=== PATIENT | female | born 1940 | race Caucasian/White ===

== ENCOUNTER 2023-06-11 15:35 | Observation (INO) | payer MEDICARE, SELFPAY ==
--- NOTE | 2023-06-11 15:51 | ED.HA ---
HPI - Headache General Chief Complaint: General Medical Stated Complaint: severe headache , dizziness, blurred vision Time Seen by Provider: 06/11/23 16:28 Source: patient and family () Mode of arrival: ambulatory History of Present Illness HPI Narrative: 83-year-old female with past medical history of high blood pressure, previous smoker, is typically seen through the [facility] system presents with 3-4 days of head pressure and feeling nauseous, dizzy, and this started after her recent influenza vaccine and has not been associated with any fever, chills, gait instability but she has had acute on chronic worsening of her nausea and vomiting and is currently on Ozempic for weight loss and 2 weeks ago had an increase in dosage. She otherwise denies any diarrhea or abdominal pain and denies any dysuria. I reviewed the triage note which reports blurry vision and the patient further clarifies this stating that this only occurs on reading up close in states that her last eye exam was over a year ago. Related Data Home Medications Medication Instructions Recorded Confirmed alprazolam 0.5 mg tablet 0.5 mg PO DAILY PRN restless legs 06/11/23 06/11/23 amlodipine 10 mg tablet 10 mg PO DAILY 06/11/23 06/11/23 duloxetine 20 mg capsule,delayed 20 mg PO DAILY 06/11/23 06/11/23 release ezetimibe 10 mg tablet 10 mg PO DAILY 06/11/23 06/11/23 fluoxetine 20 mg capsule 20 mg PO DAILY 06/11/23 06/11/23 furosemide 40 mg tablet 40 mg PO DAILY 06/11/23 06/11/23 glycopyrrolate 1 mg tablet 3 mg PO BID 06/11/23 06/11/23 losartan 50 mg tablet 50 mg PO DAILY 06/11/23 06/11/23 pregabalin 50 mg capsule 50 mg PO BID 06/11/23 06/11/23 ropinirole 0.5 mg tablet 0.5 mg PO DAILY@1700 06/11/23 06/11/23 ropinirole 1 mg tablet 1 mg PO DAILY@2300 06/11/23 06/11/23 semaglutide 0.25 mg or 0.5 mg (2 0.5 mg subcut QWEEK 06/11/23 06/11/23 mg/3 mL) subcutaneous pen injector (Ozempic) trazodone 50 mg tablet 50 mg PO BEDTIME 06/11/23 06/11/23 Allergies Allergy/AdvReac Type Severity Reaction Status Date / Time No Known Allergies Allergy Verified 06/11/23 15:59 Review of Systems Review of Systems: Pertinent positives and negatives as stated in HPI PMFSH Past Medical History Source: nursing notes reviewed Social History Social History Advance Directives: No Advance Directives Information Provided: Yes Physical Exam Vital Signs: Vital Signs: Last Vital Signs Temp 98.6 F 06/11/23 15:52 Pulse 60 06/11/23 18:42 Resp 14 06/11/23 15:52 BP 133/46 L 06/11/23 18:42 Pulse Ox 95 06/11/23 18:42 O2 Del Method Room Air 06/11/23 18:42 BMI result Body Mass Index 30.1 VITAL SIGNS: Reviewed. GENERAL: Well developed, well nourished, in no acute distress. HEAD: Normocephalic/atraumatic EYES: PERRLA, EOMI EARS: Ext canals without abnormality NOSE: Nares patent bilateral OROPHARYNX: no oral lesions noted, posterior pharynx clear NECK: Supple, no adenopathy LUNGS: Normal breath sounds. No adventitious sounds or accessory muscle use. SpO2<94> CARDIOVASCULAR: Regular rate and rhythm without noted murmurs ABDOMEN: Soft, non-tender, non-distended with bowel sounds. MUSCULOSKELETAL: No tenderness, deformities, or effusions noted on gross inspection. EXTREMITIES: No cyanosis, clubbing or edema. SKIN: Inspection of the skin reveals no rashes NEUROLOGIC: Alert and oriented x 4. Strength and sensation to light touch were grossly intact x 4, no facial asymmetry, no pronator drift, cranial nerves 2-12 are grossly intact.. Course Course Course Narrative: This is an RME: Additional HPI, ROS, PE not included below will be deferred to primary provider. Patient is an 83 year old female presenting for evaluation of Head feels weird out of place but denies headache, feeling off balance, blurred vision x 2 days, fatigue, symptom onset 1-2 days ago. Symptoms progressively worsening prompting this visit. Per her she has been confused and forgetful the past 2 days, at times when she is speaking she doesn't make sense . NIH score 0 at this time. Reports hx of TIA approx 10 years ago. Also endorses a cough with green phlegm. Plan: Labs, EKG, viral testing, CT head Medications Administered Discontinued Medications Generic Name Dose Route Start Last Admin Trade Name Ramos PRN Reason Stop Dose Admin Acetaminophen 975 mg 06/11/23 17:30 06/11/23 18:09 Acetaminophen 325 Mg Tablet PO 06/11/23 17:31 975 mg ONCE ONE Administration Aspirin 162 mg 06/11/23 19:02 06/11/23 19:30 Aspirin 81 Mg Tab.Chew PO 06/11/23 19:03 162 mg ONCE ONE Administration Ibuprofen 400 mg 06/11/23 17:30 06/11/23 18:08 Ibuprofen 400 Mg Tablet PO 06/11/23 17:31 400 mg ONCE ONE Administration Ondansetron HCl 4 mg 06/11/23 17:30 06/11/23 18:08 Ondansetron Odt 4 Mg Tab.Rapdis TRANSLINGU 06/11/23 17:31 4 mg ONCE ONE Administration Medical Decision Making Medical Decision Making MDM Narrative: 1708: 83-year-old female with history and clinical presentation, DDX: Infection, anemia, electrolyte abnormality, medication side effect, exacerbation of chronic condition, low clinical suspicion for intracranial abnormality due to no focal deficits noted, poor oral intake as an etiology for patient's symptoms, arrhythmia. 1730: Orthostatics are negative I reviewed all investigations and hematologic indices are negative for leukocytosis/left shift, no anemia or thrombocytopenia. Coagulation studies are within normal limits. Chemistry indices are grossly within normal limits without evidence of DESEAN/electrolyte or liver enzyme derangements. COVID-19 testing is negative. Chest x-ray without infiltrates and otherwise patient is afebrile and has no leukocytosis and my interpretation is in agreement with radiology's impression. CT scan is being read as age indeterminate lacunar infarcts or prominent perivascular spaces in bilateral basal ganglia. And recommends MRI of the brain. MRI has been ordered. 1901: I was informed that MRI is not available today, I have discussed all results and findings with the patient who understands that she will be admitted for further evaluation via MRI in the morning, there are no gross motor or sensory deficits, patient does continue to complain of feelings of dizziness on standing. 1900: I discussed the inpatient hospitalist who recommends outpatient MRI at this time. Consult has been placed to the hospitalist service, I have reached out to Neurology though patient's symptoms are not acute in nature. 1999: I discussed the case with Dr. Hodges who agrees with MRI tomorrow, although he does feel that the lacunar findings on CT scan are not associated with patient's symptoms and recommends a thorough visual field exam. 2003: I communicated the recommendations with Leila Brandon, hospitalist. Differential Diagnosis Differential Diagnoses: The differential diagnosis associated with the presentation includes Please see the discussion above Admission/Observation Consideration of admission/observation: Escalation of care including admission/observation considered Please see the discussion above Consult Healthcare Provider Management of the patient was discussed with: Hospitalist Please see the discussion above Lab Data MDM Lab Attestation statement: I reviewed the patient's lab results. Please see the discussion above 06/11/23 16:55 06/11/23 16:55 Labs: Lab Results 06/11/23 06/11/23 Range/Units 16:03 16:55 WBC 8.8 (4.8-10.8) X10*3/uL RBC 4.33 (4.20-5.50) X10*6/uL Hgb 12.6 (12.0-16.0) g/dl Hct 38.9 (37.0-47.0) % MCV 89.8 (80.0-98.0) fL MCH 29.1 (27.0-33.0) pg MCHC 32.4 (31.0-35.0) g/dl RDW 13.0 (11.0-16.0) % Plt Count 236 (160-400) X10*3/uL MPV 10.3 (9.4-12.3) fL Immature Gran % (Auto) 0.2 (0.0-0.4) % Neut % (Auto) 55.2 (45-73) % Lymph % (Auto) 28.5 (20-40) % Taney % (Auto) 8.6 (2-11) % Eos % (Auto) 6.7 H (0-4) % Baso % (Auto) 0.8 (0-2) % Lymph # (Auto) 2.5 (1.2-4.9) X10*3/uL Taney # (Auto) 0.8 (0.1-1.2) X10*3/uL Eos # (Auto) 0.6 H (0.0-0.4) X10*3/uL Baso # (Auto) 0.1 (0.0-0.2) X10*3/uL Abs Immat Gran (auto) 0.02 (0.00-0.03) X10*3/uL Absolute Neuts (auto) 4.9 (2.0-8.3) x10*3/uL Absolute Nucleated RBC 0.000 (0.0-0.012) X10*3/uL Nucleated RBC % (auto) 0.0 (0.0-0.2) /100WBC PT 12.8 (11.1-13.3) SEC INR 1.1 (0.9-1.1) Sodium 142 (135-145) mmol/L Potassium 3.5 (3.3-5.1) mmol/L Chloride 103 (96-108) mmol/L Carbon Dioxide 27 (22-29) mmol/L Anion Gap 16 (12-20) BUN 23 H (9-16) mg/dL Creatinine 0.78 (0.5-1.4) mg/dL Estim Creat Clear Calc 49.3 Estimated GFR > 60 Random Glucose 103 (60-115) mg/dL Calcium 9.7 (8.4-10.2) mg/dL Total Bilirubin 0.5 (0.0-1.0) mg/dL AST 14 (5-31) U/L ALT 17 (0-31) U/L Alkaline Phosphatase 64 (39-117) U/L Total Protein 6.8 (6.5-8.0) g/dL Albumin 4.1 (3.5-5.0) g/dL COVID-19 (FABBY) Negative (Negative) COVID-19 Clin Com See Note Independent Interpretation I performed an independent interpretation of an: EKG Interpretation: Normal sinus rhythm, HR -62, no STEMI, OH/QRS/QTC are within normal limits. Radiology Impression Discussion of test interpretation with radiology: I have reviewed the radiologist's reading. Radiologist Impression: Please see the discussion above Chronic Conditions Patient?s care impacted by: Hypertension Critical Care Time Critical Care Time Critical Care Time: Yes Total Critical Care Time: 45 Attestation: I personally attest to this time spent taking care of the patient. Discharge Plan Discharge Clinical Impression: Dizziness, Blurred vision, bilateral Patient Disposition: Admitted As Inpatient
[2023-06-11 15:52] VITALS: BP 116/58; PULSE 65; RESP 14; TEMP 37; O2SAT 94; BMI 30.1
[2023-06-11 17:24] VITALS: BP 133/49; PULSE 61
[2023-06-11 17:25] VITALS: BP 130/53; BP 140/46; PULSE 64; PULSE 65
[2023-06-11 17:50] LABS: Alanine Aminotransferase 17 U/L (0-31); Albumin Level 4.1 g/dL (3.5-5.0); Alkaline Phosphatase 64 U/L (39-117); Anion Gap 16 (12-20); Aspartate Amino Transferase 14 U/L (5-31); Bilirubin Total 0.5 mg/dL (0.0-1.0); Blood Urea Nitrogen 23 mg/dL (9-16); Calcium 9.7 mg/dL (8.4-10.2); Carbon Dioxide 27 mmol/L (22-29); Chloride 103 mmol/L (96-108); Creatinine Clr Calc Pharmacy 49.3; Estimated Glomerular Filt Rate > 60; Glucose Random 103 mg/dL (60-115); Potassium 3.5 mmol/L (3.3-5.1); Sodium 142 mmol/L (135-145); Total Protein 6.8 g/dL (6.5-8.0)
--- NOTE | 2023-06-11 18:26 | PC.NURSE ---
MRI screening form obtained. per radiology, MRI is no longer in the building and patient will have to wait until tomorrow. provider aware.
[2023-06-11 18:42] VITALS: BP 133/46; PULSE 60; O2SAT 95
--- NOTE | 2023-06-11 19:23 | PHA.MEDREC ---
Pharmacy Consult ? Medication Reconciliation Pharmacy has completed the medication reconciliation. Spoke to patient and verified medication list. Patient is not sure which strength of duloxetine she's on, she just knows she takes it once a day. She had both 20mg and 60mg filled at about the same time. Reporting the 20mg which was filled last.
--- NOTE | 2023-06-11 19:40 | PM.EVENT ---
Event Note Date of Service: 06/11/23 Event Note: 83 year old female with history of htn, remote history TIA 10 years ago, hld, fibromyagia, insomnia, who is a former smoker (quit 30 years ago) presented to the ED earlier today for evaluation of vague symptoms. She reports a funny sensation in her eyes that started about 2 days about. She describes this like a heaviness with associated photophobia. She denies blurred vision, photophobia, ocular pain, pain with eye movements, floaters, or loss of vision. She also reports a fogginess and memory impairment ongoing for over a year as well as a feeling of off balance occassionally ongoing for about the same. She reports slurred speech also going on for over a year and only occurring when she is tired. Has had numbness in the left hand x 1 week and is being treated for carpal tunnel syndrome. She developed a frontal headache earlier today. She has no acute change in these symptoms. No focal weakness or other focal paresthesias. No slurred speech. Head CT shows age-indeterminate lacunar infarcts and/or prominent perivascular spaces in the bilateral basal ganglia, correlation with MRI recommended as deemed clinically appropriate. No evidence of acute intracranial hemorrhage or edematous territorial infarct. Chest x-ray negative for any acute cardiopulmonary abnormality. Vital signs are stable, no hypertension. Hematology studies unremarkable. Renal function and electrolyte levels normal. Negative Time Spent With Patient Time: Total time managing care of this patient today ____ minutes.
--- NOTE | 2023-06-11 20:08 | PM.IMHP ---
History of Present Illness Date of Service: 06/11/23 Attending physician on admission: [facility] Chief Complaint: heavy sensation eyes 83 year old female with history of htn, remote history TIA 10 years ago, hld, fibromyagia, insomnia, who is a former smoker (quit 30 years ago) presented to the ED earlier today for evaluation of vague symptoms. She reports a funny sensation in her eyes that started about 2 days about. She describes this like a heaviness with associated photophobia. She denies blurred vision, photophobia, ocular pain, pain with eye movements, floaters, or loss of vision. She also reports a fogginess and memory impairment ongoing for over a year as well as a feeling of off balance occassionally ongoing for about the same. She reports slurred speech also going on for over a year and only occurring when she is tired. Has had numbness in the left hand x 1 week and is being treated for carpal tunnel syndrome. She developed a frontal headache earlier today. She has no acute change in these symptoms. No focal weakness or other focal paresthesias. No slurred speech. Head CT shows age-indeterminate lacunar infarcts and/or prominent perivascular spaces in the bilateral basal ganglia, correlation with MRI recommended as deemed clinically appropriate. No evidence of acute intracranial hemorrhage or edematous territorial infarct. Chest x-ray negative for any acute cardiopulmonary abnormality. Vital signs are stable, no hypertension. Hematology studies unremarkable. Renal function and electrolyte levels normal. Negative COVID-19. In the ED, aspirin 162mg given along with ibuprofen, tylenol, and ondansetron. ED provider discussed case with neurology recommending MRI tomorrow. [facility] Medical History (Updated 06/11/23 @ 20:21 by CHELLY Garcia) Restless leg syndrome Insomnia Fibromyalgia History of TIA (transient ischemic attack) Hyperlipidemia Hypertension Social History Advance Directives: No Advance Directives Information Provided: Yes Meds Allergies Allergy/AdvReac Type Severity Reaction Status Date / Time No Known Allergies Allergy Verified 06/11/23 15:59 Home Medications Medication Instructions Recorded Confirmed Last Taken Type alprazolam 0.5 mg tablet 0.5 mg PO DAILY PRN restless legs 06/11/23 06/11/23 06/11/23 History amlodipine 10 mg tablet 10 mg PO DAILY 06/11/23 06/11/23 Unknown History duloxetine 20 mg capsule,delayed 20 mg PO DAILY 06/11/23 06/11/23 Unknown History release ezetimibe 10 mg tablet 10 mg PO DAILY 06/11/23 06/11/23 Unknown History fluoxetine 20 mg capsule 20 mg PO DAILY 06/11/23 06/11/23 06/11/23 History furosemide 40 mg tablet 40 mg PO DAILY 06/11/23 06/11/23 06/11/23 History glycopyrrolate 1 mg tablet 3 mg PO BID 06/11/23 06/11/23 06/11/23 History losartan 50 mg tablet 50 mg PO DAILY 06/11/23 06/11/23 06/11/23 History pregabalin 50 mg capsule 50 mg PO BID 06/11/23 06/11/23 06/11/23 History ropinirole 0.5 mg tablet 0.5 mg PO DAILY@1700 06/11/23 06/11/23 06/10/23 History ropinirole 1 mg tablet 1 mg PO DAILY@2300 06/11/23 06/11/23 06/10/23 History semaglutide 0.25 mg or 0.5 mg (2 0.5 mg subcut QWEEK 06/11/23 06/11/23 06/11/23 History mg/3 mL) subcutaneous pen injector (Ozempic) trazodone 50 mg tablet 50 mg PO BEDTIME 06/11/23 06/11/23 06/11/23 History Physical Exam Vital Signs and Narrative: Vital Signs: Last Vital Signs Temp 98.6 F 06/11/23 15:52 Pulse 60 06/11/23 18:42 Resp 14 06/11/23 15:52 BP 133/46 L 06/11/23 18:42 Pulse Ox 95 06/11/23 18:42 O2 Del Method Room Air 06/11/23 18:42 BMI result Body Mass Index 30.1 Results Labs 06/11/23 16:55 06/11/23 16:55 Labs: Laboratory Results - last 24 hr 06/11/23 06/11/23 16:03 16:55 MCV 89.8 MCH 29.1 MCHC 32.4 RDW 13.0 Plt Count 236 MPV 10.3 Immature Gran % (Auto) 0.2 Neut % (Auto) 55.2 Lymph % (Auto) 28.5 Franklin % (Auto) 8.6 Eos % (Auto) 6.7 H Baso % (Auto) 0.8 Lymph # (Auto) 2.5 [place] # (Auto) 0.8 Eos # (Auto) 0.6 H Baso # (Auto) 0.1 Abs Immat Gran (auto) 0.02 Absolute Neuts (auto) 4.9 Absolute Nucleated RBC 0.000 Nucleated RBC % (auto) 0.0 PT 12.8 INR 1.1 Anion Gap 16 Estim Creat Clear Calc 49.3 Estimated GFR > 60 Random Glucose 103 Calcium 9.7 Total Bilirubin 0.5 AST 14 ALT 17 Alkaline Phosphatase 64 Total Protein 6.8 Albumin 4.1 COVID-19 (FABBY) Negative COVID-19 Clin Com See Note Imaging Radiologist's Impressions: Impressions Chest X-Ray 06/11/23 16:10 IMPRESSION: Mild right base atelectasis. Head CT 06/11/23 17:14 IMPRESSION: 1. No evidence of acute intracranial hemorrhage or edematous territorial infarction. 2. Age indeterminate lacunar infarcts and/or prominent perivascular spaces in the bilateral basal ganglia. Recommend correlation with an MR of the brain as clinically deemed appropriate. Assessment and Plan (1) Headache: Status: Acute (2) Vision changes: Status: Acute Plan 83 year old female with history of htn, remote history TIA 10 years ago, hld, fibromyagia, insomnia, who is a former smoker (quit 30 years ago) to be observed for vision changes and headache #Acute/subacute vision changes -pt reporting heaviness in eyes bilaterally with photophobia ongoing several days -Head CT negative for acute intracranial abnormality but does show age indeterminate lacunar infarcts -?related to migraine headache (given associated headache) vs CVA -Per neurology, MRI brain tomorrow -Given asa in ED, continue asa 81mg daily -Check lipid panel, initiate atorvastatin 40mg -neuro consult -observe on tele #HTN -bp reasonably controlled -continue lasix, losartan, amlodipine #HLD -as above #fibromyalgia/RLS -continue home meds #Mood disorder, unspecified -continue home meds DVT prophylaxis- lovenox Full code Time Spent With Patient Time: Total time managing care of this patient today ____ minutes. Quality Stroke Does the patient have a stroke diagnosis?: No VTE Prior VTE?: No VTE Risk Level:: Medical - moderate - high VTE Device Contraindication: Treatment Not Indicated VTE Drug Contraindication: N/A - Med Ordered
[2023-06-11 20:38] LABS: Cholesterol 172 mg/dL (<200); HDL Cholesterol 33 mg/dL (>40); LDL Cholesterol Calculated 89 mg/dL (<100); Triglycerides 253 mg/dL (<150)
[2023-06-11 21:04] VITALS: BP 146/44; PULSE 60; RESP 17; TEMP 36.7; O2SAT 98
[2023-06-12] VITALS (7 sets, daily range): BP systolic 110–155; BP diastolic 55–69; PULSE 52–68; RESP 14–20; TEMP 36–37; O2SAT 90–97
[2023-06-12 07:15] LABS: Anion Gap 12 (12-20); Blood Urea Nitrogen 23 mg/dL (9-16); Calcium 9.3 mg/dL (8.4-10.2); Carbon Dioxide 29 mmol/L (22-29); Chloride 104 mmol/L (96-108); Creatinine Clr Calc Pharmacy 48.7; Estimated Glomerular Filt Rate > 60; Glucose Random 118 mg/dL (60-115); Potassium 3.2 mmol/L (3.3-5.1); Sodium 142 mmol/L (135-145)
--- NOTE | 2023-06-12 09:33 | MHC.CM.PN ---
CM attempted X2 to meet with Patient who was sleeping soundly. CM spoke with Patient's /HCP/Real @ [phone] and IMM was addressed. Patient lives in a house with her and she requires no services nor DME [facility]. PCP is a Dr. TORRES (incorrect spelling) at [address] [place] [address] in [facility]. Home/self care is the goal and CM has initiated and will follow for dc planning.
--- NOTE | 2023-06-12 15:39 | HO.PM.IMPN ---
Subjective Subjective Date of Service: 06/12/23 Interval History: no further symptoms since admission. States that multiple symptoms associated with eyes. States the eyes start 1st and then she gets some garbled speech and then some weakness in her left hand all of which resolved over time. Review of Systems denies chest pain Denies shortness of breath Denies nausea vomiting diarrhea Denies fever chills Physical Exam Vital Signs: Vital Signs: Last Vital Signs Temp 98.2 F 06/12/23 15:03 Pulse 62 06/12/23 15:03 Resp 20 06/12/23 15:03 BP 117/56 L 06/12/23 15:03 Pulse Ox 93 06/12/23 15:03 O2 Del Method Room Air 06/12/23 15:03 BMI result Body Mass Index 30.1 Const: Other: No acute distress Resp: Other: clear to auscultation bilaterally no rales rhonchi wheezes Cardio: Other: no S4; positive S1-S2; no S3 murmurs rubs or gallops Neuro: Other: cranial nerves 2-12 grossly intact as tested. Motor is 5/5 all extremities. Sensation is intact cognition is grossly Extrem: Other: no edema bilaterally Objective Data Active Medications Acetaminophen (Acetaminophen 325 Mg Tablet) 650 mg PO Q6H PRN PRN Reason: Pain, Mild (Pain Scale 1-3) Alprazolam (Alprazolam 0.5 Mg Tablet) 0.5 mg PO DAILY PRN PRN Reason: restless legs Last Admin: 06/11/23 21:24 Dose: 0.5 mg Documented By: GWEN Amlodipine Besylate (Amlodipine Besylate 10 Mg Tablet) 10 mg PO DAILY [facility]; Protocol Last Admin: 06/12/23 09:20 Dose: 10 mg Documented By: TALAT Aspirin (Aspirin Enteric Coated 81 Mg Tablet.) 81 mg PO DAILY [facility] Last Admin: 06/12/23 09:20 Dose: 81 mg Documented By: TALAT Atorvastatin Calcium (Atorvastatin Calcium 40 Mg Tablet) 40 mg PO DAILY [facility] Last Admin: 06/12/23 09:20 Dose: 40 mg Documented By: TALAT Docusate Sodium (Docusate Sodium 100 Mg Capsule) 100 mg PO DAILY PRN PRN Reason: Constipation Duloxetine HCl (Duloxetine Hcl 20 Mg Capsule.) 20 mg PO DAILY [facility] Last Admin: 06/12/23 09:20 Dose: 20 mg Documented By: TALAT Ezetimibe (Ezetimibe 10 Mg Tablet) 10 mg PO DAILY [facility] Last Admin: 06/12/23 09:20 Dose: 10 mg Documented By: TALAT Enoxaparin Sodium (Enoxaparin Sodium 40 Mg/0.4 Ml Syringe) 40 mg SUBCUT Q24H [facility] Last Admin: 06/11/23 21:25 Dose: 40 mg Documented By: GWEN Fluoxetine HCl (Fluoxetine Hcl 20 Mg Capsule) 20 mg PO DAILY [facility] Last Admin: 06/12/23 09:20 Dose: 20 mg Documented By: TALAT Furosemide (Furosemide 40 Mg Tablet) 40 mg PO DAILY [facility]; Protocol Last Admin: 06/12/23 09:20 Dose: 40 mg Documented By: TALAT Glycopyrrolate (Glycopyrrolate 1 Mg Tablet) 3 mg PO BID [facility] Last Admin: 06/12/23 09:20 Dose: 3 mg Documented By: TALAT Guaifenesin/Codeine Phosphate (Guaifen/Codeine Sf 200/20/10ml 10 Ml Liquid) 10 ml PO Q4H PRN PRN Reason: cough Last Admin: 06/12/23 15:26 Dose: 10 ml Documented By: TALAT Losartan Potassium (Losartan Potassium 50 Mg Tablet) 50 mg PO DAILY [facility]; Protocol Last Admin: 06/12/23 09:20 Dose: 50 mg Documented By: TALAT Ondansetron HCl (Ondansetron Hcl 4 Mg/2 Ml Vial) 4 mg IVPUSH Q8H PRN PRN Reason: Nausea and Vomiting Potassium Chloride (Potassium Chloride Packet 20 Meq Packet) 40 meq PO BID [facility] Stop: 06/12/23 21:01 Last Admin: 06/12/23 09:42 Dose: 40 meq Documented By: TALAT Pregabalin (Pregabalin 50 Mg Capsule) 50 mg PO BID [facility] Last Admin: 06/12/23 09:20 Dose: 50 mg Documented By: TALAT Ropinirole HCl (Ropinirole Hcl 0.5 Mg Tablet) 0.5 mg PO DAILY@1700 [facility] Last Admin: 06/12/23 15:26 Dose: 0.5 mg Documented By: TALAT Ropinirole HCl (Ropinirole Hcl 1 Mg Tablet) 1 mg PO DAILY@2300 [facility] Last Admin: 06/11/23 22:55 Dose: Not Given Documented By: GWEN Non-Admin Reason: Patient Refused Sodium Chloride (0.9 % Sodium Chloride Flush 3 Ml Syringe) 3 ml IVFLUSH QSHIFT [facility] Last Admin: 06/12/23 09:20 Dose: 3 ml Documented By: TALAT Trazodone HCl (Trazodone Hcl 50 Mg Tablet) 50 mg PO BEDTIME PRN PRN Reason: Insomnia Last Admin: 06/11/23 21:24 Dose: 50 mg Documented By: GWEN Labs 06/12/23 06:17 06/12/23 06:17 Labs: Laboratory Results - last 24 hr 06/11/23 06/11/23 06/11/23 16:03 16:55 22:35 MCV 89.8 MCH 29.1 MCHC 32.4 RDW 13.0 Plt Count 236 MPV 10.3 Immature Gran % (Auto) 0.2 Neut % (Auto) 55.2 Lymph % (Auto) 28.5 [place] % (Auto) 8.6 Eos % (Auto) 6.7 H Baso % (Auto) 0.8 Lymph # (Auto) 2.5 [place] # (Auto) 0.8 Eos # (Auto) 0.6 H Baso # (Auto) 0.1 Abs Immat Gran (auto) 0.02 Absolute Neuts (auto) 4.9 Absolute Nucleated RBC 0.000 Nucleated RBC % (auto) 0.0 PT 12.8 INR 1.1 Anion Gap 16 Estim Creat Clear Calc 49.3 Estimated GFR > 60 Random Glucose 103 Calcium 9.7 Total Bilirubin 0.5 AST 14 ALT 17 Alkaline Phosphatase 64 Total Protein 6.8 Albumin 4.1 Triglycerides 253 H Cholesterol 172 LDL Cholesterol, Calc 89 HDL Cholesterol 33 L Urine Color Yellow Urine Appearance Clear Urine pH 5.0 Ur Specific [place] 1.025 Urine Protein Negative Urine Glucose (UA) Negative Urine Ketones Trace Urine Blood Negative Urine Nitrite Negative Ur Leukocyte Esterase Trace H Urine RBC 0-2 Urine WBC 0-5 Ur Squamous Epith Cells 3-5 Urine Bacteria None Seen Hyaline Casts 11-20 COVID-19 (FABBY) Negative COVID-19 Clin Com See Note 06/12/23 06:17 MCV 88.7 MCH 28.6 MCHC 32.2 RDW 13.1 Plt Count 195 MPV 10.5 Immature Gran % (Auto) 0.4 Neut % (Auto) 39.5 L Lymph % (Auto) 39.4 [place] % (Auto) 9.4 Eos % (Auto) 10.4 H Baso % (Auto) 0.9 Lymph # (Auto) 2.7 [place] # (Auto) 0.6 Eos # (Auto) 0.7 H Baso # (Auto) 0.1 Abs Immat Gran (auto) 0.03 Absolute Neuts (auto) 2.7 Absolute Nucleated RBC 0.000 Nucleated RBC % (auto) 0.0 PT INR Anion Gap 12 Estim Creat Clear Calc 48.7 Estimated GFR > 60 Random Glucose 118 H Calcium 9.3 Total Bilirubin AST ALT Alkaline Phosphatase Total Protein Albumin Triglycerides Cholesterol LDL Cholesterol, Calc HDL Cholesterol Urine Color Urine Appearance Urine pH Ur Specific [place] Urine Protein Urine Glucose (UA) Urine Ketones Urine Blood Urine Nitrite Ur Leukocyte Esterase Urine RBC Urine WBC Ur Squamous Epith Cells Urine Bacteria Hyaline Casts COVID-19 (FABBY) COVID-19 Clin Com Assessment and Plan (1) Vision changes: Status: Acute (2) Dizziness: Status: Acute (3) Hypertension: Status: Acute Plan 83 year old female with history of htn, remote history TIA 10 years ago, hld, fibromyagia, insomnia, who is a former smoker (quit 30 years ago) to be observed for vision changes and headache. describes progression of symptoms as above. 1.Acute/subacute vision changes - MRI without acute changes; after review of symptoms consistent with complex migraine - continue aspirin statin - neuro consult pending 2.HTN - acceptable control on current therapy - adjust as indicated 3.HLD - statin as ordered lovenox Full code Requires ongoing hospitalization at pending specialist consult Time Spent With Patient Time: Total time managing care of this patient today ____ minutes. Quality Stroke Does the patient have a stroke diagnosis?: No VTE Prior VTE?: No VTE Risk Level:: Medical - moderate - high VTE Device Contraindication: Treatment Not Indicated VTE Drug Contraindication: N/A - Med Ordered
--- NOTE | 2023-06-12 18:29 | PM.NEUROCN ---
History of Present Illness Data of Consult Service Date: 06/12/23 Primary Care Provider: Unknown Physician HPI Reason for consult: Blurred vision and vague dizziness This is a 83 year old female with history of HBP history of TIA 10 years ago, hld, fibromyagia, insomnia, presented to the ED for evaluation of vague symptoms of funny sensation in her eyes that started about 2 days ago, a heaviness with associated photophobia. She denies blurred vision, photophobia, ocular pain, pain with eye movements, floaters, or loss of vision. She also reports a fogginess and memory impairment ongoing for over a year as well as a feeling of off balance occasionally ongoing for about the same. She reports slurred speech also going on for over a year and only occurring when she is tired. Has had numbness in the left hand x 1 week and is being treated for carpal tunnel syndrome. She developed a frontal headache earlier today. She has no acute change in these symptoms. No focal weakness or other focal paresthesias. No slurred speech. Head CT shows age-indeterminate lacunar infarcts and/or prominent perivascular spaces in the bilateral basal ganglia. MRI shows no acute stroke and only mild microvascular disease and atrophy., Review of Systems Review of Systems: denies chest pain Denies shortness of breath Denies nausea vomiting diarrhea Denies fever chills PMFSH Past Medical History Medical History (Updated 06/12/23 @ 15:41 by Valentino Mercedes DO) Restless leg syndrome Insomnia Fibromyalgia History of TIA (transient ischemic attack) Hyperlipidemia Hypertension Social History Social History Patient Tobacco Use Status: Never used Tobacco service: No Meds Allergies Allergy/AdvReac Type Severity Reaction Status Date / Time No Known Allergies Allergy Verified 06/11/23 15:59 Active Medications: Current Medications Acetaminophen (Acetaminophen 325 Mg Tablet) 650 mg PO Q6H PRN PRN Reason: Pain, Mild (Pain Scale 1-3) Alprazolam (Alprazolam 0.5 Mg Tablet) 0.5 mg PO DAILY PRN PRN Reason: restless legs Last Admin: 06/11/23 21:24 Dose: 0.5 mg Amlodipine Besylate (Amlodipine Besylate 10 Mg Tablet) 10 mg PO DAILY [facility]; Protocol Last Admin: 06/12/23 09:20 Dose: 10 mg Aspirin (Aspirin Enteric Coated 81 Mg Tablet.) 81 mg PO DAILY [facility] Last Admin: 06/12/23 09:20 Dose: 81 mg Atorvastatin Calcium (Atorvastatin Calcium 40 Mg Tablet) 40 mg PO DAILY [facility] Last Admin: 06/12/23 09:20 Dose: 40 mg Docusate Sodium (Docusate Sodium 100 Mg Capsule) 100 mg PO DAILY PRN PRN Reason: Constipation Duloxetine HCl (Duloxetine Hcl 20 Mg Capsule.) 20 mg PO DAILY [facility] Last Admin: 06/12/23 09:20 Dose: 20 mg Ezetimibe (Ezetimibe 10 Mg Tablet) 10 mg PO DAILY [facility] Last Admin: 06/12/23 09:20 Dose: 10 mg Enoxaparin Sodium (Enoxaparin Sodium 40 Mg/0.4 Ml Syringe) 40 mg SUBCUT Q24H [facility] Last Admin: 06/11/23 21:25 Dose: 40 mg Fluoxetine HCl (Fluoxetine Hcl 20 Mg Capsule) 20 mg PO DAILY [facility] Last Admin: 06/12/23 09:20 Dose: 20 mg Furosemide (Furosemide 40 Mg Tablet) 40 mg PO DAILY [facility]; Protocol Last Admin: 06/12/23 09:20 Dose: 40 mg Glycopyrrolate (Glycopyrrolate 1 Mg Tablet) 3 mg PO BID [facility] Last Admin: 06/12/23 09:20 Dose: 3 mg Guaifenesin/Codeine Phosphate (Guaifen/Codeine Sf 200/20/10ml 10 Ml Liquid) 10 ml PO Q4H PRN PRN Reason: cough Last Admin: 06/12/23 15:26 Dose: 10 ml Losartan Potassium (Losartan Potassium 50 Mg Tablet) 50 mg PO DAILY [facility]; Protocol Last Admin: 06/12/23 09:20 Dose: 50 mg Ondansetron HCl (Ondansetron Hcl 4 Mg/2 Ml Vial) 4 mg IVPUSH Q8H PRN PRN Reason: Nausea and Vomiting Potassium Chloride (Potassium Chloride Packet 20 Meq Packet) 40 meq PO BID [facility] Stop: 06/12/23 21:01 Last Admin: 06/12/23 09:42 Dose: 40 meq Pregabalin (Pregabalin 50 Mg Capsule) 50 mg PO BID [facility] Last Admin: 06/12/23 09:20 Dose: 50 mg Ropinirole HCl (Ropinirole Hcl 0.5 Mg Tablet) 0.5 mg PO DAILY@1700 [facility] Last Admin: 06/12/23 15:26 Dose: 0.5 mg Ropinirole HCl (Ropinirole Hcl 1 Mg Tablet) 1 mg PO DAILY@2300 [facility] Last Admin: 06/11/23 22:55 Dose: Not Given Sodium Chloride (0.9 % Sodium Chloride Flush 3 Ml Syringe) 3 ml IVFLUSH QSHIFT [facility] Last Admin: 06/12/23 16:01 Dose: Not Given Trazodone HCl (Trazodone Hcl 50 Mg Tablet) 50 mg PO BEDTIME PRN PRN Reason: Insomnia Last Admin: 06/11/23 21:24 Dose: 50 mg Home Medications Medication Instructions Recorded Confirmed Last Taken Type alprazolam 0.5 mg tablet 0.5 mg PO DAILY PRN restless legs 06/11/23 06/11/23 06/11/23 History amlodipine 10 mg tablet 10 mg PO DAILY 06/11/23 06/11/23 Unknown History duloxetine 20 mg capsule,delayed 20 mg PO DAILY 06/11/23 06/11/23 Unknown History release ezetimibe 10 mg tablet 10 mg PO DAILY 06/11/23 06/11/23 Unknown History fluoxetine 20 mg capsule 20 mg PO DAILY 06/11/23 06/11/23 06/11/23 History furosemide 40 mg tablet 40 mg PO DAILY 06/11/23 06/11/23 06/11/23 History glycopyrrolate 1 mg tablet 3 mg PO BID 06/11/23 06/11/23 06/11/23 History losartan 50 mg tablet 50 mg PO DAILY 06/11/23 06/11/23 06/11/23 History pregabalin 50 mg capsule 50 mg PO BID 06/11/23 06/11/23 06/11/23 History ropinirole 0.5 mg tablet 0.5 mg PO DAILY@1700 06/11/23 06/11/23 06/10/23 History ropinirole 1 mg tablet 1 mg PO DAILY@2300 06/11/23 06/11/23 06/10/23 History semaglutide 0.25 mg or 0.5 mg (2 0.5 mg subcut QWEEK 06/11/23 06/11/23 06/11/23 History mg/3 mL) subcutaneous pen injector (Ozempic) trazodone 50 mg tablet 50 mg PO BEDTIME PRN Sleep 06/11/23 06/11/23 Unknown History Physical Exam Vital Signs: Vital Signs: Last Vital Signs Temp 98.2 F 06/12/23 15:03 Pulse 62 06/12/23 15:03 Resp 20 06/12/23 15:03 BP 117/56 L 06/12/23 15:03 Pulse Ox 93 06/12/23 15:03 O2 Del Method Room Air 06/12/23 15:03 BMI result Body Mass Index 30.1 Const: Other: No acute distress Resp: Other: clear to auscultation bilaterally no rales rhonchi wheezes Cardio: Other: no S4; positive S1-S2; no S3 murmurs rubs or gallops Neuro: Other: cranial nerves 2-12 grossly intact as tested. Motor is 5/5 all extremities. Sensation is intact cognition is Normal. Normal non focal neuro exam. Extrem: Other: no edema bilaterally Results Labs 06/12/23 06:17 06/12/23 06:17 Labs: Short CBC 06/12/23 Range/Units 06:17 WBC 6.8 (4.8-10.8) X10*3/uL Hgb 11.9 L (12.0-16.0) g/dl Hct 36.9 L (37.0-47.0) % Plt Count 195 (160-400) X10*3/uL BMP 06/12/23 06:17 Sodium 142 Potassium 3.2 L Chloride 104 Carbon Dioxide 29 BUN 23 H Creatinine 0.79 Calcium 9.3 Urine 06/11/23 Range/Units 22:35 Urine Color Yellow Urine Appearance Clear Urine pH 5.0 (5.0-9.0) Ur Specific [place] 1.025 (1.005-1.025) Urine Protein Negative (Neg-Trace) mg/dL Urine Glucose (UA) Negative (Negative) mg/dL Assessment and Plan (1) Vision changes: Status: Acute Vagu enon specific symptoms with negative work up. Check sedrate to r/o temporal arteritis with some visual Sx and headache. Can be discharged after (2) Dizziness: Status: Acute (3) Hypertension: Status: Acute Plan 83 year old female with history of htn, remote history TIA 10 years ago, hld, fibromyagia, insomnia, who is a former smoker (quit 30 years ago) to be observed for vision changes and headache. describes progression of symptoms as above. 1.Acute/subacute vision changes - MRI without acute changes; after review of symptoms consistent with complex migraine - continue aspirin statin - neuro consult pending 2.HTN - acceptable control on current therapy - adjust as indicated 3.HLD - statin as ordered lovenox Full code Requires ongoing hospitalization at pending specialist consult Time Spent With Patient Time: Total time managing care of this patient today ____ minutes. Procedures Date of Service Date of Service: 06/12/23
[2023-06-13 03:46] VITALS: BP 119/56; PULSE 62; RESP 16; TEMP 36.1; O2SAT 93
[2023-06-13 07:18] VITALS: BP 109/62; PULSE 62; RESP 20; TEMP 36.7; O2SAT 92
[2023-06-13 11:22] VITALS: BP 123/58; PULSE 65; RESP 20; TEMP 36.3; O2SAT 93
[2023-06-13 14:58] VITALS: BP 123/56; PULSE 66; RESP 20; TEMP 36.7; O2SAT 96
[2023-06-13 18:51] VITALS: BP 116/54; PULSE 66; RESP 20; TEMP 36.7; O2SAT 94
[2023-06-14] VITALS: BP 145/66; PULSE 67; RESP 19; TEMP 36.6; O2SAT 96
[2023-06-14 03:50] VITALS: BP 98/49; PULSE 62; RESP 19; TEMP 36.2; O2SAT 92
[2023-06-14 07:04] VITALS: BP 163/67; PULSE 58; RESP 20; TEMP 36.3; O2SAT 92
[2023-06-14 11:14] VITALS: BP 123/57; PULSE 65; RESP 20; TEMP 36.4; O2SAT 92
[2023-06-14 14:54] VITALS: BP 139/60; PULSE 71; RESP 20; TEMP 36.7; O2SAT 97
[2023-06-14 19:04] VITALS: BP 154/65; PULSE 75; RESP 20; TEMP 36.6; O2SAT 94
[2023-06-15] VITALS: BP 132/60; PULSE 68; RESP 18; TEMP 36; O2SAT 66
[2023-06-15 04:00] VITALS: BP 104/59; PULSE 71; RESP 20; TEMP 36.1; O2SAT 93
[2023-06-15 07:30] VITALS: BP 173/76; PULSE 66; RESP 16; TEMP 36.2; O2SAT 94
--- NOTE | 2023-06-15 10:28 | MHC.CM.PN ---
EMR REVIEWED. PER MD ROUND PT IS MEDICALLY CLEARED FOR DC. PLAN IS RETURN HOME, NO SERVICES. IS AT THE BEDSIDE TO TRANSPORT. IMM DELIVERED.
[2023-06-15 11:19] VITALS: BP 108/55; PULSE 69; RESP 16; TEMP 36.2; O2SAT 93
--- NOTE | 2023-06-15 11:56 | PM.DS ---
DS: Providers Provider Date of Service: 06/15/23 Date of admission: 06/11/23 20:12 Date of discharge: 06/15/23 Primary care physician: Unknown Physician Consults: 06/11/23 20:17 Consult to Neurology Routine Consulting Provider: [facility] Reason for consultation: subacute vision changes DS: Diagnosis Discharge Diagnosis (1) Vision changes: Status: Acute (2) Dizziness: Status: Acute (3) Hypertension: Status: Acute DS: Summary Hospital Course Hospital Course: 83 year old female with history of htn, remote history TIA 10 years ago, hld, fibromyagia, insomnia, who is a former smoker (quit 30 years ago) presented to the ED earlier today for evaluation of vague symptoms. She reports a funny sensation in her eyes that started about 2 days about. She describes this like a heaviness with associated photophobia. She denies blurred vision, photophobia, ocular pain, pain with eye movements, floaters, or loss of vision. She also reports a fogginess and memory impairment ongoing for over a year as well as a feeling of off balance occassionally ongoing for about the same. She reports slurred speech also going on for over a year and only occurring when she is tired. Has had numbness in the left hand x 1 week and is being treated for carpal tunnel syndrome. She developed a frontal headache earlier today. She has no acute change in these symptoms. No focal weakness or other focal paresthesias. No slurred speech. Head CT shows age-indeterminate lacunar infarcts and/or prominent perivascular spaces in the bilateral basal ganglia, correlation with MRI recommended as deemed clinically appropriate. No evidence of acute intracranial hemorrhage or edematous territorial infarct. Chest x-ray negative for any acute cardiopulmonary abnormality. Vital signs are stable, no hypertension. Hematology studies unremarkable. Renal function and electrolyte levels normal. Negative COVID-19. In the ED, aspirin 162mg given along with ibuprofen, tylenol, and ondansetron. Hospital Course Admitted to telemetry where monitor failed to show pathological rhythms. MRI of the brain was obtained which failed to demonstrate an acute focus responsible for symptoms. Seen in consultation by Neurology who recommended CRP and sed rate to rule out temporal arteritis both of which were negative. CTA of the head neck was done which failed to demonstrate any acute occlusions however demonstrated a 1.1 cm solid mass of left upper lobe. Subsequent dedicated CT of chest with IV contrast demonstrated that the irregular opacity in the central left upper lobe probably represents focal inflammatory changes. Secretions were seen within the adjacent left upper lobe bronchus. Consideration for small bronchopneumonia. Discussed at length with patient. Will be sent home to complete a course of Augmentin and doxycycline. She will need follow-up with her PCP and her repeat CT scan of the chest with IV contrast in 3 months Time Spent with Patient Time attestation: Total time managing care of this patient today ____ minutes. Discharge coordination time: Greater than 30 minutes Quality: Safe Use of Opioids Does Pt have an Active Cancer Diagnosis on the Problem List?: No Quality: Stroke Does the patient have a stroke diagnosis?: No Physical Exam Vital Signs: Vital Signs: Last Vital Signs Temp 97.2 F 06/15/23 11:19 Pulse 69 06/15/23 11:19 Resp 16 06/15/23 11:19 BP 108/55 L 06/15/23 11:19 Pulse Ox 93 06/15/23 11:19 O2 Del Method Room Air 06/15/23 11:19 O2 Flow Rate 93 06/15/23 00:00 BMI result Body Mass Index 30.1 Const: Other: No acute distress Resp: Other: clear to auscultation bilaterally no rales rhonchi wheezes Cardio: Other: no S4; positive S1-S2; no S3 murmurs rubs or gallops Neuro: Other: cranial nerves 2-12 grossly intact as tested. Motor is 5/5 all extremities. Sensation is intact cognition is grossly Extrem: Other: no edema bilaterally DS: Data Data Completed and Pending Labs on day of discharge: Laboratory Results - last 24 hr 06/15/23 08:26 Hold Purple Top SEE NOTE Sodium 143 Potassium 3.9 Chloride 103 Carbon Dioxide 31 H Anion Gap 13 BUN 12 Creatinine 0.60 Estim Creat Clear Calc 64.1 Estimated GFR > 60 Random Glucose 116 H Calcium 9.3 Total Bilirubin 0.5 AST 17 ALT 16 Alkaline Phosphatase 65 Total Protein 5.9 L Albumin 3.6 Discharge Plan Discharge Anticipated Discharge Date/Time: 06/15/23 11:42 Patient Disposition: Home, Self-Care Discharge Diagnosis: Migraine Referrals: Physician,Unknown J [Primary Care Provider] - 1 Week Discharge Medications: New atorvastatin 40 mg Tablet 40 mg PO DAILY Qty: 30 0RF amoxicillin-pot clavulanate 875-125 mg tablet 1 tab PO Q12H Qty: 20 0RF doxycycline hyclate 100 mg tablet 100 mg PO BID 10 Days Qty: 20 0RF Continued losartan 50 mg tablet 50 mg PO DAILY glycopyrrolate 1 mg tablet 3 mg PO BID furosemide 40 mg tablet 40 mg PO DAILY ropinirole 1 mg tablet 1 mg PO DAILY@2300 trazodone 50 mg tablet 50 mg PO BEDTIME PRN (Reason: Sleep) alprazolam 0.5 mg tablet 0.5 mg PO DAILY PRN (Reason: restless legs) amlodipine 10 mg tablet 10 mg PO DAILY fluoxetine 20 mg capsule 20 mg PO DAILY ezetimibe 10 mg tablet 10 mg PO DAILY pregabalin 50 mg capsule 50 mg PO BID Ozempic 0.25 mg or 0.5 mg (2 mg/3 mL) pen injector 0.5 mg subcut QWEEK duloxetine 20 mg Capsule,Delayed Release(Dr/Ec) 20 mg PO DAILY ropinirole 0.5 mg Tablet 0.5 mg PO DAILY@1700 Discharge Orders: Discharge Order (Routine); Ordered 06/15/23 Ordered By: Valentino Mercedes Diet: Advance to usual diet Activity on Discharge: As tolerated Stand Alone Forms: Patient Portal Discharge page Care Plan Goals: Resume all pre-hospital medications Health Concerns: Your CT scan showed inflammatory changes. Going to treat you as if this was a pneumonia with 2 antibiotics. You will need to follow-up with your PCP and get a repeat CT scan of your chest in 3 months Plan of Treatment: May return to work 06/21/2023 without restriction Assessment: See discharge summary
== END 2023-06-15 13:07 | disposition home or self-care (01) ==
LOC: HO.ED 19:04 → HO.EDOVER 20:25 → HO.IMC 23:05
PROVIDERS: Nurse Practitioner Family; Admitting Provider Physician Assistant; Emergency Provider Student in an Organized Health Care Education/Training Program; Visit Provider Hospitalist
DX: G43.909 Migraine, unspecified, not intractable, without status migrainosus (principal); H53.149 Visual discomfort, unspecified; R59.9 Enlarged lymph nodes, unspecified; H53.8 Other visual disturbances; R41.0 Disorientation, unspecified; I10 Essential (primary) hypertension; R42 Dizziness and giddiness; R06.02 Shortness of breath; R05.9 Cough, unspecified; J98.11 Atelectasis; J43.9 Emphysema, unspecified; M79.7 Fibromyalgia; G25.81 Restless legs syndrome; E78.5 Hyperlipidemia, unspecified; G47.00 Insomnia, unspecified; Z86.73 Personal history of transient ischemic attack (TIA), and cerebral infarction without residual deficits; Z79.899 Other long term (current) drug therapy; Z11.52 Encounter for screening for COVID-19
CPT/HCPCS: 36415; 70450; 70496; 70498; 70551; 71046; 71260; 80048; 80053; 80061; 81001; 85025; 85610; 85652; 86140; 87635; 93005; 96360; 96361; 96372; 99222; 99285; J1650; Q9967

== ENCOUNTER → 2023-06-11 20:12 | Outpatient (BNV) | payer MEDICARE, SELFPAY | PROVIDERS: Admitting Provider Physician Assistant; Emergency Provider Student in an Organized Health Care Education/Training Program; Visit Provider Physician Assistant | DX: H53.9 Unspecified visual disturbance (principal); R42 Dizziness and giddiness; I10 Essential (primary) hypertension | CPT/HCPCS: 99223; 99233; 99239 ==